=== PATIENT | female | born 1950 | race Hispanic/Latino ===

== ENCOUNTER → 2020-01-10 | Day surgery (SDC) | payer OTHER ==
[2020-01-05 12:18] LABS: BASOPHILS # (AUTO) 0.1 (0.0-0.1); BASOPHILS % 1.8 % (0.0-1.0); EOSINOPHILS # (AUTO) 0.2 (0.0-0.4); EOSINOPHILS % 2.8 % (0.0-6.0); HEMATOCRIT 38.8 % (34.2-44.1); HEMOGLOBIN 12.8 g/dL (12.0-16.0); LYMPHOCYTES # (AUTO) 2.6 (1.0-3.2); LYMPHOCYTES % 33.9 % (18.0-39.1); MEAN CORPUSCULAR HEMOGLOBIN 31.3 pg (28-32); MEAN CORPUSCULAR VOLUME 94.9 fL (81-99); MONOCYTES # (AUTO) 0.8 (0.2-0.8); MONOCYTES % 10.3 % (4.4-11.3); NEUTROPHILS % 50.8 % (38.7-80.0); PLATELET COUNT 318 x10e3/uL (140-360); RED BLOOD COUNT 4.09 x10e6/uL (3.6-5.1); RED CELL DISTRIBUTION WIDTH 13.6 % (11.7-14.4)
[~2020-01-10] MED LIST: EPHEDRINE SULFATE INJ 50 MG/ML VIAL ONE; FENTANYL CITRATE/PF 100MCG/2 ML INJ ONE; HYOSCYAMINE 0.125 MG TAB ONE; LIDOCAINE HCL 2% LOCAL INJ 5 ML SDV VIAL INJ ONE; MAGNESIUM OXID400 MG PO; MIDAZOLAM HCL 2 MG/2 ML VIAL ONE; PANTOPRAZOLE 40 MG 10ML VIAL ONE; PROBIOTIC & AC1 EACH PO; PROPOFOL IV EMULSION 10 MG/ML 20 ML VIAL ONE; VITAMIN D3250 MC1 PO
[2020-01-10 11:20] VITALS: BP 114/56
--- NOTE | 2020-01-10 14:50 | Operative Report ---
DATE OF PROCEDURE: 01/10/2020 SURGEON: Olivier Recinos MD PROCEDURE: Colonoscopy with polypectomy and biopsies. INDICATIONS FOR COLONOSCOPY: Colorectal cancer screening. MEDICATIONS: The patient was done under MAC, please see anesthesiologist's note. PROCEDURE IN DETAIL: With the patient in the left lateral decubitus position, the flexible fiberoptic Olympus colonoscope was inserted into the rectum with ease and advanced all the way to the cecum. A minute polyp was noted in the cecum, was hyperplastic-appearing and that was removed per the cold biopsy forceps. The ascending, transverse, and descending appeared to be within normal limits. Some diverticular disease was noted in the sigmoid colon. A sessile mass was noted in the distal rectum, approximately 2.5 cm proximal to the dentate line, was semi circumferential and biopsies were obtained for both frozen section and permanent section. The scope was subsequently withdrawn and the patient tolerated the procedure well. IMPRESSION: 1. Cecal polyp, minute, removed per the cold biopsy forceps. 2. Diverticulosis. 3. Distal rectal mass, semi circumferential, approximately 2.5 cm proximal to the dentate line. Biopsies obtained for frozen and permanent sections. PLAN: Follow up histology. General Surgical consult with Dr. Kam Mack obtained. Olivier Recinos MD [facility] [place] /[id number] cc: MD Hawk Vila MD
== END | disposition home or self-care (01) ==
LOC: OR 08:50
PROVIDERS: ATTEND Internal Medicine Gastroenterology
DX: Z12.11 Encounter for screening for malignant neoplasm of colon (principal); C20 Malignant neoplasm of rectum; K63.5 Polyp of colon; K57.32 Diverticulitis of large intestine without perforation or abscess without bleeding; K62.89 Other specified diseases of anus and rectum; Z01.810 Encounter for preprocedural cardiovascular examination; Z01.812 Encounter for preprocedural laboratory examination; Z11.59 Encounter for screening for other viral diseases; Z88.2 Allergy status to sulfonamides; K51.80 Other ulcerative colitis without complications; Z86.010 Personal history of colon polyps
CPT/HCPCS: 36415; 45380; 85025; 87635; 88172; 88173; 88305; 88331; 93005; C9113; J2250; J3010; J2001

== ENCOUNTER 2020-06-26 06:07 | Inpatient (IN) | payer OTHER ==
[2020-06-21 12:13] LABS: BASOPHILS # (AUTO) 0.1 (0.0-0.1); BASOPHILS % 1.6 % (0.0-1.0); EOSINOPHILS # (AUTO) 0.1 (0.0-0.4); HEMATOCRIT 36.7 % (34.2-44.1); HEMOGLOBIN 12.2 g/dL (12.0-16.0); LYMPHOCYTES # (AUTO) 1.2 (1.0-3.2); LYMPHOCYTES % 20.2 % (18.0-39.1); MEAN CORPUSCULAR HEMOGLOBIN 32.9 pg (28-32); MEAN CORPUSCULAR HGB CONC 33.2 g/dL (31-35); MEAN CORPUSCULAR VOLUME 98.9 fL (81-99); MONOCYTES # (AUTO) 0.7 (0.2-0.8); MONOCYTES % 11.9 % (4.4-11.3); NEUTROPHILS # (AUTO) 3.9 (2.1-6.9); NEUTROPHILS % 63.8 % (38.7-80.0); PLATELET COUNT 324 x10e3/uL (140-360); RED BLOOD COUNT 3.71 x10e6/uL (3.6-5.1); RED CELL DISTRIBUTION WIDTH 13.9 % (11.7-14.4)
[2020-06-21 12:35] LABS: ALANINE AMINOTRANSFERASE 13 IU/L (0-55); ALBUMIN 4.1 g/dL (3.5-5.0); ALBUMIN/GLOBULIN RATIO 1.1 (0.8-2.0); ALKALINE PHOSPHATASE 79 IU/L (40-150); ANION GAP 13.4 mmol/L (8-16); BLOOD UREA NITROGEN 15 mg/dL (7-26); BUN/CREATININE RATIO 22 (6-25); CALCIUM 9.5 mg/dL (8.4-10.2); CARBON DIOXIDE 26 mmol/L (22-29); CHLORIDE 105 mmol/L (98-107); CREATININE, SERUM 0.67 mg/dL (0.57-1.11); EST GLOMERULAR FILTRATION RATE > 60 ML/MIN (60-); GLUCOSE 102 mg/dL (74-118); POTASSIUM 3.4 mmol/L (3.5-5.1); SODIUM 141 mmol/L (136-145)
[~2020-06-26] VITALS: Ht 132.1 cm; Wt 36.3 kg
[~2020-06-26 06:07] MED LIST changes: -EPHEDRINE SULFATE INJ 50 MG/ML VIAL ONE; -FENTANYL CITRATE/PF 100MCG/2 ML INJ ONE; -HYOSCYAMINE 0.125 MG TAB ONE; -LIDOCAINE HCL 2% LOCAL INJ 5 ML SDV VIAL INJ ONE; -MIDAZOLAM HCL 2 MG/2 ML VIAL ONE; +MULTIVITAMINS1 EAC7 PO; -PANTOPRAZOLE 40 MG 10ML VIAL ONE; -PROPOFOL IV EMULSION 10 MG/ML 20 ML VIAL ONE
[2020-06-26] MEDS ORDERED: [UNRECOGNIZED DRUG - OTHER] PO (06:48)
[2020-06-26] MEDS ORDERED: ANTIBIOTIC (06:48)
[2020-06-26] MEDS ORDERED: HEPARIN SOD/SOD CHLORIDE 1,000 ML ONE (07:18)
[2020-06-26] MEDS ORDERED: MINERAL OIL STERILE 10ML VIAL ONE (08:30)
[2020-06-26] MEDS ORDERED: FENTANYL CITRATE/PF 100MCG/2 ML INJ ONE (11:23)
[2020-06-26] MEDS ORDERED: MIDAZOLAM HCL 2 MG/2 ML VIAL ONE (11:23)
[2020-06-26] MEDS: SODIUM CHLORIDE 0.9% 1000ML 1,000 ML IV SCH ×2 (12:45→19:18)
[2020-06-26] MEDS: SODIUM CHLORIDE 0.9% 250ML IRRIG IR SCH ×4 (12:45→23:58)
[2020-06-26] MEDS ORDERED: HYDROMORPHONE 1MG/1ML INJ IV PRN ×2 (12:45→14:15)
[2020-06-26] MEDS ORDERED: ACETAMINOPHEN 1000 MG/100 ML IV PRN (12:45)
[2020-06-26] MEDS ORDERED: KETOROLAC TROMETHAMINE 30 MG/ML VIAL IV PRN (13:45)
[2020-06-26] MEDS: SUFENTA EPI PRN (14:06)
[2020-06-26] MEDS: ROPIVACAINE EPI PRN (14:06)
[2020-06-26] MEDS: NS EPI PRN (14:06)
[2020-06-26] MEDS ORDERED: MORPHINE SULFATE INJ 2 MG/ML SYR IV PRN ×2 (14:15)
[2020-06-26 15:50] VITALS: BP 107/63
[2020-06-26 15:51] VITALS: BP 107/63
[2020-06-26 16:26] VITALS: BP 107/63
[2020-06-26 16:28] VITALS: BP 107/63
[2020-06-26] MEDS: CEFTRIAXONE SOD 1 GM/NS 50 ML 50 ML IV SCH (16:46)
[2020-06-26] MEDS: PANTOPRAZOLE 40 MG 10ML VIAL IV SCH (16:46)
[2020-06-26] MEDS ORDERED: BUPIVACAINE 0.25% 30ML SDV ONE (17:24)
[2020-06-26] MEDS ORDERED: NEOSTIGMINE 1 MG/ML 10ML VIAL ONE (17:52)
[2020-06-26] MEDS ORDERED: SEVOFLURANE INHAL SOLN 250 ML PEN BTL ONE (17:52)
[2020-06-26] MEDS ORDERED: ROCURONIUM BROMIDE 10 MG/ML 5ML VIAL IV ONE (17:52)
[2020-06-26] MEDS ORDERED: LIDOCAINE HCL 2% LOCAL INJ 5 ML SDV VIAL INJ ONE (17:52)
[2020-06-26] MEDS ORDERED: ATROPINE SULFATE 1 MG/ML VIAL ONE (17:52)
[2020-06-26] MEDS ORDERED: GLYCOPYRROLATE INJ 0.2 MG/ML VIAL ONE (17:52)
[2020-06-26] MEDS ORDERED: PROPOFOL IV EMULSION 10 MG/ML 20 ML VIAL ONE (17:52)
[2020-06-26] MEDS ORDERED: KETOROLAC TROMETHAMINE 30 MG/ML VIAL ONE (17:52)
[2020-06-26] MEDS ORDERED: CEFOXITIN SOD 1 GM VIAL ONE (17:52)
[2020-06-26] MEDS ORDERED: DEXAMETHASONE SOD PHOS INJ 4 MG/ML VIAL ONE (17:52)
[2020-06-26] MEDS ORDERED: ONDANSETRON HCL INJ 2MG/ML 2ML 2 MG/ML VIAL ONE (17:52)
[2020-06-26] MEDS ORDERED: PHENYLEPHRINE HCL 1% 10 MG/ML VIAL ONE (17:52)
[2020-06-26] MEDS: HYDROMORPHONE 1MG/1ML INJ IV PRN ×2 (19:45→23:39)
[2020-06-26] MEDS: ONDANSETRON HCL INJ 2MG/ML 2ML 2 MG/ML VIAL IV PRN (19:53)
[2020-06-26 20:01] VITALS: BP 132/77
[2020-06-26 20:02] VITALS: BP 132/77
[2020-06-26] MEDS ORDERED: ACETAMINOPHEN 1000 MG/100 ML 100 ML IV ONE (23:57)
[2020-06-27] VITALS (8 sets, daily range): BP systolic 133–153; BP diastolic 63–69
[2020-06-27] MEDS: SODIUM CHLORIDE 0.9% 250ML IRRIG IR SCH ×6 (04:41→23:56)
[2020-06-27] MEDS: SODIUM CHLORIDE 0.9% 1000ML 1,000 ML IV SCH ×2 (04:41→14:54)
[2020-06-27 04:49] LABS: BASOPHILS % 0.1 % (0.0-1.0); HEMATOCRIT 28.4 % (34.2-44.1); HEMOGLOBIN 9.4 g/dL (12.0-16.0); LYMPHOCYTES # (AUTO) 0.4 (1.0-3.2); LYMPHOCYTES % 2.6 % (18.0-39.1); MEAN CORPUSCULAR HEMOGLOBIN 33.1 pg (28-32); MEAN CORPUSCULAR HGB CONC 33.1 g/dL (31-35); MONOCYTES # (AUTO) 0.5 (0.2-0.8); NEUTROPHILS # (AUTO) 14.2 (2.1-6.9); NEUTROPHILS % 93.8 % (38.7-80.0); PLATELET COUNT 128 x10e3/uL (140-360); RED BLOOD COUNT 2.84 x10e6/uL (3.6-5.1); RED CELL DISTRIBUTION WIDTH 13.2 % (11.7-14.4)
[2020-06-27 05:10] LABS: ALANINE AMINOTRANSFERASE 15 IU/L (0-55); ALBUMIN 2.8 g/dL (3.5-5.0); ALBUMIN/GLOBULIN RATIO 0.9 (0.8-2.0); ALKALINE PHOSPHATASE 52 IU/L (40-150); ANION GAP 14.6 mmol/L (8-16); BLOOD UREA NITROGEN 14 mg/dL (7-26); BUN/CREATININE RATIO 19 (6-25); CALCIUM 8.2 mg/dL (8.4-10.2); CARBON DIOXIDE 19 mmol/L (22-29); CHLORIDE 108 mmol/L (98-107); CREATININE, SERUM 0.72 mg/dL (0.57-1.11); EST GLOMERULAR FILTRATION RATE > 60 ML/MIN (60-); GLUCOSE 144 mg/dL (74-118); POTASSIUM 4.6 mmol/L (3.5-5.1); SODIUM 137 mmol/L (136-145)
[2020-06-27] MEDS: HYDROMORPHONE 1MG/1ML INJ IV PRN ×2 (05:30→10:35)
[2020-06-27] MEDS: ONDANSETRON HCL INJ 2MG/ML 2ML 2 MG/ML VIAL IV PRN (10:35)
[2020-06-27] MEDS: PANTOPRAZOLE 40 MG 10ML VIAL IV SCH (18:04)
[2020-06-27] MEDS: CEFTRIAXONE SOD 1 GM/NS 50 ML 50 ML IV SCH (18:04)
[2020-06-28] VITALS (10 sets, daily range): BP systolic 126–153; BP diastolic 62–99
[2020-06-28] MEDS: SODIUM CHLORIDE 0.9% 1000ML 1,000 ML IV SCH ×2 (03:28→16:06)
[2020-06-28] MEDS: SODIUM CHLORIDE 0.9% 250ML IRRIG IR SCH ×5 (03:28→19:30)
[2020-06-28 04:48] LABS: BASOPHILS % 0.2 % (0.0-1.0); EOSINOPHILS % 0.1 % (0.0-6.0); HEMATOCRIT 26.4 % (34.2-44.1); HEMOGLOBIN 8.7 g/dL (12.0-16.0); LYMPHOCYTES # (AUTO) 0.5 (1.0-3.2); LYMPHOCYTES % 3.7 % (18.0-39.1); MEAN CORPUSCULAR HEMOGLOBIN 32.7 pg (28-32); MEAN CORPUSCULAR VOLUME 99.2 fL (81-99); MONOCYTES # (AUTO) 0.8 (0.2-0.8); MONOCYTES % 6.1 % (4.4-11.3); NEUTROPHILS # (AUTO) 12.4 (2.1-6.9); NEUTROPHILS % 89.5 % (38.7-80.0); PLATELET COUNT 220 x10e3/uL (140-360); RED BLOOD COUNT 2.66 x10e6/uL (3.6-5.1); RED CELL DISTRIBUTION WIDTH 13.2 % (11.7-14.4)
[2020-06-28 05:06] LABS: ANION GAP 10.6 mmol/L (8-16); BLOOD UREA NITROGEN 7 mg/dL (7-26); BUN/CREATININE RATIO 13 (6-25); CALCIUM 7.9 mg/dL (8.4-10.2); CARBON DIOXIDE 25 mmol/L (22-29); CHLORIDE 103 mmol/L (98-107); CREATININE, SERUM 0.55 mg/dL (0.57-1.11); EST GLOMERULAR FILTRATION RATE > 60 ML/MIN (60-); GLUCOSE 99 mg/dL (74-118); POTASSIUM 3.6 mmol/L (3.5-5.1); SODIUM 135 mmol/L (136-145)
[2020-06-28] MEDS: SUFENTA EPI PRN (06:45)
[2020-06-28] MEDS: NS EPI PRN (06:45)
[2020-06-28] MEDS: ROPIVACAINE EPI PRN (06:45)
[2020-06-28] MEDS: CEFTRIAXONE SOD 1 GM/NS 50 ML 50 ML IV SCH (16:06)
[2020-06-28] MEDS: PANTOPRAZOLE 40 MG 10ML VIAL IV SCH (16:06)
[2020-06-29] VITALS (7 sets, daily range): BP systolic 120–139; BP diastolic 50–73
[2020-06-29 05:02] LABS: BASOPHILS # (AUTO) 0.1 (0.0-0.1); BASOPHILS % 0.7 % (0.0-1.0); EOSINOPHILS # (AUTO) 0.2 (0.0-0.4); EOSINOPHILS % 1.6 % (0.0-6.0); HEMATOCRIT 24.5 % (34.2-44.1); HEMOGLOBIN 8.2 g/dL (12.0-16.0); LYMPHOCYTES # (AUTO) 0.5 (1.0-3.2); LYMPHOCYTES % 4.1 % (18.0-39.1); MEAN CORPUSCULAR HEMOGLOBIN 33.9 pg (28-32); MEAN CORPUSCULAR HGB CONC 33.5 g/dL (31-35); MEAN CORPUSCULAR VOLUME 101.2 fL (81-99); MONOCYTES # (AUTO) 0.7 (0.2-0.8); MONOCYTES % 6.4 % (4.4-11.3); NEUTROPHILS # (AUTO) 9.9 (2.1-6.9); NEUTROPHILS % 86.6 % (38.7-80.0); PLATELET COUNT 225 x10e3/uL (140-360); RED BLOOD COUNT 2.42 x10e6/uL (3.6-5.1)
[2020-06-29 05:19] LABS: BLOOD UREA NITROGEN 8 mg/dL (7-26); BUN/CREATININE RATIO 15 (6-25); CALCIUM 7.8 mg/dL (8.4-10.2); CARBON DIOXIDE 19 mmol/L (22-29); CHLORIDE 106 mmol/L (98-107); CREATININE, SERUM 0.52 mg/dL (0.57-1.11); EST GLOMERULAR FILTRATION RATE > 60 ML/MIN (60-); GLUCOSE 60 mg/dL (74-118); SODIUM 140 mmol/L (136-145)
[2020-06-29] MEDS: SODIUM CHLORIDE 0.9% 1000ML 1,000 ML IV SCH (08:15)
[2020-06-29] MEDS: CEFTRIAXONE SOD 1 GM/NS 50 ML 50 ML IV SCH (16:14)
[2020-06-29] MEDS: PANTOPRAZOLE 40 MG 10ML VIAL IV SCH (16:14)
[2020-06-29] MEDS: SOD CHL 0.45%/POT CHL 20MEQ 1,000 ML IV SCH (18:33)
[2020-06-29] MEDS: ROPIVACAINE EPI PRN (22:58)
[2020-06-29] MEDS: NS EPI PRN (22:58)
[2020-06-29] MEDS: SUFENTA EPI PRN (22:58)
[2020-06-30] VITALS (8 sets, daily range): BP systolic 112–138; BP diastolic 58–70
[2020-06-30] MEDS: SOD CHL 0.45%/POT CHL 20MEQ 1,000 ML IV SCH ×2 (07:38→23:32)
[2020-06-30] MEDS: CEFTRIAXONE SOD 1 GM/NS 50 ML 50 ML IV SCH (16:54)
[2020-06-30] MEDS: PANTOPRAZOLE 40 MG 10ML VIAL IV SCH (16:54)
[2020-06-30] MEDS ORDERED: DIPHENHYDRAMINE HCL 25 MG CAP PO PRN (18:00)
[2020-06-30] MEDS ORDERED: HYDROCODONE/APAP 5MG-325MG TAB PO PRN (18:30)
[2020-07-01] VITALS (8 sets, daily range): BP systolic 110–129; BP diastolic 55–78
[2020-07-01] MEDS: SOD CHL 0.45%/POT CHL 20MEQ 1,000 ML IV SCH (11:57)
[2020-07-01] MEDS ORDERED: ONDANSETRON HCL 4 MG ORAL DISINTEGRATING TAB PO PRN (13:15)
[2020-07-01] MEDS: PANTOPRAZOLE 40 MG 10ML VIAL IV SCH (16:50)
[2020-07-01] MEDS: CEFTRIAXONE SOD 1 GM/NS 50 ML 50 ML IV SCH (16:53)
[2020-07-02] VITALS (8 sets, daily range): BP systolic 100–133; BP diastolic 53–63
[2020-07-02] MEDS: SOD CHL 0.45%/POT CHL 20MEQ 1,000 ML IV SCH ×2 (01:46→03:29)
[2020-07-02] MEDS: PANTOPRAZOLE 40 MG 10ML VIAL IV SCH (16:38)
[2020-07-02] MEDS: CEFTRIAXONE SOD 1 GM/NS 50 ML 50 ML IV SCH (16:38)
[2020-07-03] VITALS (7 sets, daily range): BP systolic 106–129; BP diastolic 55–90
[2020-07-03] MEDS: SOD CHL 0.45%/POT CHL 20MEQ 1,000 ML IV SCH (00:43)
[2020-07-03] MEDS: PANTOPRAZOLE 40 MG 10ML VIAL IV SCH (16:19)
[2020-07-03] MEDS: CEFTRIAXONE SOD 1 GM/NS 50 ML 50 ML IV SCH (17:00)
[2020-07-03] MEDS ORDERED: LEVOFLOXACIN250 MG PO (18:28)
== END 2020-07-03 20:16 | disposition home or self-care (01) | DRG 330 ==
LOC: OR 06:07 → PACU V 12:44 → IMCU 14:40 → MED/SURG 06-28 21:50
PROVIDERS: ADMIT Surgery; ATTEND Surgery
PROC: 0DTN0ZZ Resection of Sigmoid Colon, Open Approach (ICD-10-PCS; 2020-06-26)
PROC: 0DTQ0ZZ Resection of Anus, Open Approach (ICD-10-PCS; 2020-06-26)
PROC: 0D1L0Z4 Bypass Transverse Colon to Cutaneous, Open Approach (ICD-10-PCS; 2020-06-26)
PROC: 0DTP0ZZ Resection of Rectum, Open Approach (ICD-10-PCS; principal; 2020-06-26 08:36)
DX: C20 Malignant neoplasm of rectum (principal); Z68.1 Body mass index [BMI] 19.9 or less, adult; Z20.828 Contact with and (suspected) exposure to other viral communicable diseases; Z88.2 Allergy status to sulfonamides; R63.6 Underweight
CPT/HCPCS: 36415; 71046; 74018; 80048; 80053; 85025; 88307; 88309; 93005; 96361; 97139; 99251; J0461; J0694; J0696; J1100; J1170; J1885; J2001; J2250; J2370; J2405; J2710; J3010; J7030; U0002